=== PATIENT | female | born 2000 | race African-American/Black ===

== ENCOUNTER 2020-02-05 21:53 | Emergency (ER) | payer SELFPAY ==
[~2020-02-05] VITALS: Ht 162.6 cm; Wt 86.4 kg
[2020-02-05 22:11] VITALS: Ht 162.6 cm; Wt 86.4 kg
[2020-02-05] MEDS ORDERED: ULTRAM50 MG PO (22:40)
[2020-02-05 23:00] VITALS: BP 112/70
== END 2020-02-05 23:00 | disposition home or self-care (01) ==
LOC: D.ER 21:53
DX: S76.911A Strain of unspecified muscles, fascia and tendons at thigh level, right thigh, initial encounter (principal); S83.412A Sprain of medial collateral ligament of left knee, initial encounter; X50.1XXA Overexertion from prolonged static or awkward postures, initial encounter; Y93.9 Activity, unspecified; Y92.9 Unspecified place or not applicable; M25.561 Pain in right knee